=== PATIENT | female | born 1960 | race Two or more races ===

== ENCOUNTER 2019-06-03 15:54 | Emergency (ER) | payer OTHER ==
[~2019-06-03] VITALS: Ht 157.5 cm; Wt 86.2 kg
[2019-06-03 16:33] LABS: Basophils # (auto) 0.1 uL; Basophils % (auto) 0.5 % (0.0-2.0); Eosinophils # (auto) 0 uL; Eosinophils % (auto) 0.3 % (0.0-7.0); Hematocrit 45.1 % (36.0-46.0); Lymphocytes # (auto) 2.6 uL; Mean Corpuscular Hgb Conc. 33.4 g/dL (32.0-36.0); Monocytes # (auto) 0.5 uL; Monocytes % (auto) 3.5 % (0.0-12.0); Neutrophils # (auto) 10.6 uL; Neutrophils % (auto) 76.7 % (37.0-80.0); Platelet Count (auto) 316 10^3/uL (140-450); Red Blood Cells 5.01 10^6/uL (4.0-5.20); Red Cell Distribution Width 13.5 % (11.8-14.3); White Blood Cell 13.8 10^3/uL (4.4-10.8)
[2019-06-03] MEDS: KETOROLAC TROMETH 15 mg/ml 1ML VL IV ONE (16:51)
[2019-06-03] MEDS: SODIUM CHLORIDE 0.9% 1,000 ML IV ONE (16:51)
[2019-06-03 18:27] LABS: Urine Bacteria NONE SEEN /hpf (None Seen); Urine Blood Negative /uL (Negative); Urine Specific Gravity 1.006 (1.001-1.035); Urine WBC 28 /hpf (0 - 5)
[2019-06-03] MEDS ORDERED: SODIUM CHLORIDE 0.9% 1,000 ML IVB ONE (18:56)
[2019-06-03] MEDS ORDERED: cefTRIAXone 1GM/50ML D5W 50 ML IV ONE (19:00)
[2019-06-03 19:26] LABS: Albumin 3.9 g/dL (3.4-5.0); Calcium 9.8 mg/dL (8.5-10.1); Magnesium 2.2 mg/dL (1.6-2.6); Potassium 3.9 mmol/L (3.5-5.1)
[2019-06-03 19:29] LABS: BUN/Creatinine Ratio 11.8; Bilirubin, Total 0.4 mg/dL (0.2-1.0); Total Protein 8.1 g/dL (6.4-8.2)
[2019-06-03 22:23] VITALS: BP 150/71
[2019-06-03] MEDS ORDERED: SODIUM CHLORIDE 0.9% 1,000 ML IV ONE (23:00)
[2019-06-03] MEDS ORDERED: hydrALAZINE HCL 10 MG TAB PO ONE (23:15)
== END 2019-06-04 00:12 | disposition home or self-care (01) ==
LOC: ER 16:02
DX: N13.30 Unspecified hydronephrosis (principal); K80.20 Calculus of gallbladder without cholecystitis without obstruction; N39.0 Urinary tract infection, site not specified; R11.2 Nausea with vomiting, unspecified
CPT/HCPCS: 36415; 74176; 76705; 80053; 81001; 83735; 85025; 96361; 96374; 99284; J1885

== ENCOUNTER 2021-08-05 12:52 | Emergency (ER) | payer OTHER ==
[~2021-08-05] VITALS: Ht 157.5 cm; Wt 84.4 kg
[2021-08-05] MEDS ORDERED: KETOROLAC TROMETH 60MG/2ML VIAL IM ONE (14:15)
[2021-08-05 14:20] VITALS: BP 148/72
[2021-08-05] MEDS ORDERED: TRAM-297 PO (14:41)
== END 2021-08-05 14:47 | disposition home or self-care (01) ==
LOC: ER 12:52
DX: M23.91 Unspecified internal derangement of right knee (principal)
CPT/HCPCS: 96372; 99283; J1885

== ENCOUNTER → 2024-05-28 | Outpatient (CLI) | payer OTHER ==
[~2024-05-28] MED LIST: HYDR-4902 PO; IBUP-1455 PO; NITR-52 PO; TRAM-297 PO
[2024-05-28 09:19] LABS: Anion Gap 6 (5-15); BUN/Creatinine Ratio 16.3 (10.0-20.0); Bilirubin, Total 0.3 mg/dL (0.2-1.0); Blood Urea Nitrogen 15 mg/dL (9-23); Calcium 10.1 mg/dL (8.7-10.4); Carbon Dioxide 28 mmol/L (20-31); Sodium 142 mmol/L (136-145); Total Protein 7.7 g/dL (5.7-8.2)
[2024-05-28 09:25] LABS: Alanine Aminotransferase 229 U/L (7-40); Albumin 4.8 g/dL (3.2-4.8); Alkaline Phosphatase 264 U/L (46-116); Aspartate Aminotransferase 139 U/L (13-40); Chloride 108 mmol/L (98-107); Potassium 5.2 mmol/L (3.5-5.1)
[2024-05-28 09:34] LABS: Glucose 201 mg/dL (74-106)
== END | disposition home or self-care (01) ==
LOC: LAB 08:11
PROVIDERS: ATTEND Internal Medicine
DX: E78.5 Hyperlipidemia, unspecified (principal); E73.8 Other lactose intolerance
CPT/HCPCS: 36415; 80053

== ENCOUNTER → 2024-06-08 | Outpatient (CLI) | payer OTHER ==
[~2024-06-08] MED LIST changes: +ALBUTEROL SULF 2.5 MG/0.5ML(0.5%) NEB SOLN ONE
== END | disposition home or self-care (01) ==
LOC: RT 08:14
PROVIDERS: ATTEND Internal Medicine Pulmonary Disease
DX: R06.00 Dyspnea, unspecified (principal); Z87.891 Personal history of nicotine dependence
CPT/HCPCS: 94060; 94727; 94729

== ENCOUNTER → 2024-06-11 | Outpatient (CLI) | payer OTHER ==
[~2024-06-11] MED LIST changes: -ALBUTEROL SULF 2.5 MG/0.5ML(0.5%) NEB SOLN ONE
[2024-06-11 08:31] LABS: Anion Gap 9 (5-15); BUN/Creatinine Ratio 15.2 (10.0-20.0); Blood Urea Nitrogen 15 mg/dL (9-23); Carbon Dioxide 26 mmol/L (20-31); Chloride 102 mmol/L (98-107); Potassium 4.3 mmol/L (3.5-5.1); Sodium 137 mmol/L (136-145)
[2024-06-11 08:33] LABS: Albumin 4.8 g/dL (3.2-4.8); Bilirubin, Total 0.4 mg/dL (0.2-1.0); Total Protein 7.7 g/dL (5.7-8.2)
[2024-06-11 08:42] LABS: Alanine Aminotransferase 81 U/L (7-40); Alkaline Phosphatase 166 U/L (46-116); Aspartate Aminotransferase 43 U/L (13-40); Calcium 10.5 mg/dL (8.7-10.4); Glucose 214 mg/dL (74-106)
[2024-06-11 08:57] LABS: Hepatitis B Surface Antigen Negative (Negative)
[2024-06-11 09:16] LABS: Hepatitis A Ab IgM Negative; Hepatitis B Core IgM Negative (Negative); Hepatitis C Antibody Negative (Negative)
== END | disposition home or self-care (01) ==
LOC: LAB 07:28
PROVIDERS: ATTEND Internal Medicine
DX: R74.01 Elevation of levels of liver transaminase levels (principal)
CPT/HCPCS: 36415; 80053; 80074

== ENCOUNTER → 2024-09-29 | Outpatient (CLI) | payer OTHER ==
[2024-09-29 09:37] LABS: Alanine Aminotransferase 25 U/L (7-40); Albumin 4.5 g/dL (3.2-4.8); Alkaline Phosphatase 98 U/L (46-116); Anion Gap 8 (5-15); Aspartate Aminotransferase 17 U/L (13-40); BUN/Creatinine Ratio 15.8 (10.0-20.0); Bilirubin, Total 0.4 mg/dL (0.2-1.0); Blood Urea Nitrogen 15 mg/dL (9-23); Calcium 10.6 mg/dL (8.7-10.4); Carbon Dioxide 27 mmol/L (20-31); Chloride 106 mmol/L (98-107); Glucose 165 mg/dL (74-106); Potassium 4.7 mmol/L (3.5-5.1); Sodium 141 mmol/L (136-145); Total Protein 7.3 g/dL (5.7-8.2)
== END | disposition home or self-care (01) ==
LOC: LAB 08:44
PROVIDERS: ATTEND Internal Medicine
DX: E11.65 Type 2 diabetes mellitus with hyperglycemia (principal); E87.6 Hypokalemia
CPT/HCPCS: 36415; 80053; 83036

== ENCOUNTER 2024-10-27 09:54 | Outpatient (CLI) | payer OTHER ==
[2024-10-27 10:50] LABS: HDL Cholesterol 52 mg/dL (40-59)
[2024-10-27 10:53] LABS: Cholesterol 235 mg/dL (< 200); LDL Cholesterol 167 mg/dL (< 100); Triglycerides 194 mg/dL (< 150)
== END 2024-10-27 17:00 | disposition home or self-care (01) ==
LOC: LAB 09:54
PROVIDERS: ATTEND Internal Medicine
DX: E11.9 Type 2 diabetes mellitus without complications (principal); E66.9 Obesity, unspecified
CPT/HCPCS: 36415; 80061

== ENCOUNTER 2025-04-05 09:07 | Outpatient (CLI) | payer OTHER ==
[2025-04-05 09:41] LABS: Hematocrit 44.2 % (36.0-46.0); Hemoglobin 14.9 g/dL (12.2-16.2); Mean Corpuscular Hemoglobin 30.3 pg (28.0-32.0); Mean Corpuscular Volume 89.8 fL (80.0-100.0); Nucleated Red Blood Cells % 0.1 %
[2025-04-05 09:46] LABS: Urine Protein, UAD TRACE (Negative)
[2025-04-05 10:19] LABS: Albumin 4.4 g/dL (3.2-4.8); Anion Gap 9 (5-15); BUN/Creatinine Ratio 15.4 (10.0-20.0); Bilirubin, Total 0.4 mg/dL (0.2-1.0); Blood Urea Nitrogen 16 mg/dL (9-23); Calcium 10.2 mg/dL (8.7-10.4); Carbon Dioxide 30 mmol/L (20-31); Chloride 103 mmol/L (98-107); HDL Cholesterol 59 mg/dL (40-59); Potassium 5.1 mmol/L (3.5-5.1); Sodium 142 mmol/L (136-145); Total Protein 7.7 g/dL (5.7-8.2)
[2025-04-05 10:25] LABS: Alanine Aminotransferase 45 U/L (7-40); Alkaline Phosphatase 125 U/L (46-116); Cholesterol 240 mg/dL (< 200); Glucose 252 mg/dL (74-106); Triglycerides 187 mg/dL (< 150)
== END 2025-04-05 17:00 | disposition home or self-care (01) ==
LOC: LAB 09:07
PROVIDERS: ATTEND Internal Medicine
DX: E78.5 Hyperlipidemia, unspecified (principal); E11.22 Type 2 diabetes mellitus with diabetic chronic kidney disease; N18.2 Chronic kidney disease, stage 2 (mild)
CPT/HCPCS: 36415; 80053; 80061; 81001; 82043; 83036; 84443; 85025